=== PATIENT | female | born 1960 | race Caucasian/White ===

== ENCOUNTER → 2016-11-20 | Day surgery (SDC) | payer BC ==
--- NOTE | 2016-11-11 17:40 | HP ---
PREOPERATIVE HISTORY AND PHYSICAL: DATE OF ADMISSION/SURGERY: 11/20/16 [facility] DATE OF OFFICE VISIT/ENCOUNTER: 11/09/16 ATTENDING SURGEON: Josefina Ridley MD PROCEDURE: Left wrist removal of hardware. CHIEF COMPLAINT: Painful retained hardware, left wrist/forearm. HISTORY OF PRESENT ILLNESS: This is a 56-year-old female who underwent an open reduction internal fixation of the left both-bone forearm fracture back in June 2015, currently she is complaining of painful hardware in the ulna and she would like to have it removed. She reports that the radial plate is not bothering her at all. PAST MEDICAL HISTORY: Unremarkable. PAST SURGICAL HISTORY: 1. Open reduction internal fixation, both-bone left forearm fracture, June 2015. 2. Thyroid surgery x4. CURRENT MEDICATIONS: None. ALLERGIES: None. FAMILY MEDICAL HISTORY: Significant for breast cancer and lung cancer. SOCIAL HISTORY: The patient is employed at [employer] in [place]. She denies tobacco and recreational drug use. She does admit to alcohol use on occasion. REVIEW OF SYSTEMS: General: Negative for fevers, chills, or night sweats. No known anesthesia problems in the past. HEENT: Negative for headache, lightheadedness or syncopal episodes. Integumentary: Negative for abrasions, lesions, or open wounds. Cardiothoracic: Negative for chest pain, palpitations , or edema. Negative for hypertension. Pulmonary: Negative for shortness of breath with exertion, chronic cough, COPD. GI: Negative for nausea, vomiting, diarrhea, constipation, or GERD. : Negative for nocturia, urinary frequency , urgency, history of UTIs, or kidney problems. Musculoskeletal: Positive for current complaint. Negative for chronic or intermittent back pain. She has history of fracture of her left forearm. Neurological: Negative for paresthesias, numbness, history of seizure, stroke, or epilepsy. Endocrine: Positive for thyroid issues. Negative for diabetes. Hematologic: Negative for easy bruising, anemia, excessive bleeding, or history of DVT. Infectious Disease: Negative for history of MRSA, hepatitis C or HIV. PHYSICAL EXAMINATION GENERAL: Well-developed, well-nourished, 56-year-old female in no acute distress. VITAL SIGNS: Height 5 feet 8 inches, weight 160 pounds, blood pressure 130/90, pulse rate 70. HEENT: Normocephalic, atraumatic. Pupils are equal, round, and reactive to light and accommodation. Extraocular movements are intact. NECK: Supple. No palpable lymph nodes. Throat is clear. PULMONARY: Lungs are clear to auscultation bilaterally. No wheezes, rales, or rhonchi. CARDIOTHORACIC: Regular rate and rhythm, S1 and S2. No murmurs, rubs, or gallops. No edema. ABDOMEN: Positive bowel sounds, soft, nontender. NEUROLOGIC: Alert and oriented x3. Cranial nerves II through XII are intact. Sensation is intact to light touch. MUSCULOSKELETAL: On exam of her left forearm, she has two well-healed surgical incisions. She has excellent range of motion in all directions of her wrist. Skin is intact. She can fully flex and extend her fingers. Neurovascular function is intact. DIAGNOSTIC STUDIES: Imaging studies: X-rays of the left wrist show both fractures to be healed and in excellent position. Hardware is also in appropriate position. IMPRESSION: Painful hardware, left ulna. PLAN: The patient is scheduled to undergo removal of the ulnar plate, left wrist, with Dr. Ridley on 11/20/16. She will return to the office 10 to 14 days postop for followup and suture removal. A prescription for [place] was e-scribed to the patient's pharmacy for postoperative pain management. YAEL BRITT [id number]/[facility] #: [id number] MTDGeovany
[~2016-11-20] MED LIST: Acetaminophen TAB* 325 MG PO PRN; Buffered Lidocaine 1% SYR 3ML* 3 ML/SYR SYRINGE INTRADERM ONE; Buffered Lidocaine 1% SYR 3ML* 3 ML/SYR SYRINGE ONE; Dexamethasone IV* 4 MG/ML 1 ML (4 MG) ONE; DiMENhydriNATE IV* 50 MG/ML VIAL IV PUSH PRN; Famotidine IV* 10 MG/ML 2 ML (20 mg) IV ONE; Famotidine IV* 10 MG/ML 2 ML (20 mg) ONE; HYDROmorphone INJ* 1 MG/ML CARPUJECT SYRINGE IV PRN; Ketorolac INJ* 30 MG/ML 1 ML VIAL ONE; Lidocaine 2% PF * 5 ML VIAL ONE; Midazolam* 1 MG/ML 5 ML VIAL (5 MG) ONE; Ondansetron INJ* 2 MG/ML VIAL ONE; Propofol* 10 MG/ML 20 ML BTL IV PUSH ONE; fentaNYL* 50 MCG/ML 2 ML VIAL (100 MCG VIAL) ONE; oxyCODONE/Acetamin 5/325 MG* TAB PO PRN
[2016-11-20 13:27] VITALS: BP 113/68
--- NOTE | 2016-11-22 07:06 | OP ---
DATE OF OPERATION: 11/20/16 [facility] DATE OF : 62 SURGEON: Josefina Ridley MD. RIVET TESTER: YAEL Herzog ANESTHESIOLOGIST: Lorna Marquez MD ANESTHESIA: Local MAC. PRE-OP DIAGNOSIS: Painful hardware in the left wrist. POST-OP DIAGNOSIS: Painful hardware in the left wrist. OPERATIVE PROCEDURE: Hardware removal, left wrist. ESTIMATED BLOOD LOSS: Zero. TOURNIQUET TIME: About 15 minutes. INDICATION FOR PROCEDURE: Jojo is a very pleasant 56-year-old woman who suffered an open both-bone forearm fracture about a [id number] ago. The fracture has healed well, but the ulnar plate is bothersome. She presents for removal of hardware. DESCRIPTION OF PROCEDURE: The patient was brought to the operating room, was given a general anesthetic and placed in the supine position on the operating table with a tourniquet around her left upper arm. Skin of her left upper extremity was prepped and draped in the usual sterile fashion. The upper extremity was exsanguinated and her tourniquet elevated to 250 mmHg. The previous scar was incised. We dissected sharply through the subcutaneous tissue , taking care not to injure the dorsal sensory branch of the ulnar nerve. The plate was carefully dissected out and then all of the screws removed without difficulty. The plate was also removed and the screw holes were debrided with a rongeur. There was no sign of infection. The wound was copiously irrigated with saline. The fascia between the extensor and flexor compartments were closed with 2-0 Polysorb sutures, and the skin edges reapproximated with 4-0 nylon sutures. The wound was dressed with Xeroform, 4x4, Webril, and an Miguel Angel wrap. The patient tolerated the procedure well, was brought to the recovery room in good condition. [id number]/[facility] #: [id number] BETH[facility] HOSPITALGeovany
== END | disposition home or self-care (01) ==
LOC: OREAST 10:27
PROVIDERS: ATTEND Orthopaedic Surgery
DX: T84.84XA Pain due to internal orthopedic prosthetic devices, implants and grafts, initial encounter (principal); Y83.1 Surgical operation with implant of artificial internal device as the cause of abnormal reaction of the patient, or of later complication, without mention of misadventure at the time of the procedure; S52.502D Unspecified fracture of the lower end of left radius, subsequent encounter for closed fracture with routine healing; S52.602D Unspecified fracture of lower end of left ulna, subsequent encounter for closed fracture with routine healing; X58.XXXD Exposure to other specified factors, subsequent encounter
CPT/HCPCS: 88300; J1100; J1885; J2250; J2405; J2704; J3010